=== PATIENT | female | born 1930 | race Native Hawaiian/Other Pacific Islander ===

== ENCOUNTER 2018-01-17 20:43 | Inpatient (IN) | payer MEDICARE, MEDICAID ==
[~2018-01-17] VITALS: Ht 157.5 cm; Wt 54.0 kg
--- NOTE | 2018-01-17 21:49 | NUR ---
Pt ambulated to with two person assist. Pt resting in position of comfort for self with eyes closed, resp even and unlabored. No obvious signs of distress. Pt transfered here from [facility] for medical clearance prior to admission to [facility]HU. Pt arrived on a 5150 for danger to self. Per EMS report pt sts she wants to because she feels too much. Pt denies HI.
[2018-01-17] MEDS ORDERED: SUCR1TAB PO (22:22)
[2018-01-17] MEDS ORDERED: CELEBREX (22:22)
[2018-01-17] MEDS ORDERED: FAMO20TA8 PO (22:22)
[2018-01-17] MEDS ORDERED: DORZ10DR10 EACHEYE (22:22)
[2018-01-17] MEDS ORDERED: SERT50TA12 PO (22:22)
[2018-01-17] MEDS ORDERED: RISE35TA PO (22:22)
[2018-01-17] MEDS ORDERED: MIRA50TA PO (22:22)
[2018-01-17] MEDS ORDERED: ATOR10TA PO (22:22)
[2018-01-17] MEDS ORDERED: ASPIRIN EC (22:22)
[2018-01-17] MEDS ORDERED: AMYL1CAP58 PO (22:22)
--- NOTE | 2018-01-17 23:10 | NUR ---
Nicki aquino in [facility] - 01/17/18 at 2355 by [id number] PATIENT MEDICAL CLEARED BY DR FOURNIER
--- NOTE | 2018-01-17 23:10 | NUR ---
PATIENT MEDICALLY CLEARED BY DR FOURNIER.
--- NOTE | 2018-01-17 23:14 | NUR ---
Pt. admitted to MHU, under care of Dr. SALAZAR/KIET Belongs List completed.
[2018-01-17] MEDS ORDERED: CLONAZEPAM 0.5 MG TABLET PO SCH (23:30)
[2018-01-17] MEDS ORDERED: TEMAZEPAM 7.5 MG CAPSULE PO PRN (23:30)
[2018-01-17] MEDS ORDERED: MAGNESIUM HYDROXIDE 30 ML LIQUID UDC PO PRN (23:30)
[2018-01-17] MEDS ORDERED: MAG HYDROX/AL HYDROX/SIMETH 30 ML LIQUID UDC PO PRN (23:30)
[2018-01-18] VITALS: BP 158/70
[2018-01-18] MEDS ORDERED: ACETAMINOPHEN 325 MG TABLET ONE (01:29)
[2018-01-18] MEDS ORDERED: CLONAZEPAM 0.5 MG TABLET ONE (01:29)
[2018-01-18] MEDS: ACETAMINOPHEN 325 MG TABLET PO PRN ×2 (01:33→15:34)
[2018-01-18] MEDS ORDERED: CLONAZEPAM 0.5 MG TABLET PO PRN (07:06)
[2018-01-18 07:30] VITALS: BP 134/67
--- NOTE | 2018-01-18 07:31 | NUR ---
Admitting note Patient is am 87 yr old Nepali female admitted on a 5150 for DTS. Patient presented to [facility] complaining of general weakness. Upon further assessment patient according to the hold and medical record verbalized feeling of wanting to because she was in too much pain. Attempts made to communicate with patient using [employer] translation services, according to autism teacher patient is confused and is able to state her name only minimal information obtained through medical records. Notified patient's daughter in law sister. Patient admitted under the care of Dr. Hernandez and Dr. Turcios both aware of admission, follow up with reconciliation endorsed to a.m. shift. Continue to monitor for safety.
[2018-01-18] MEDS: SERTRALINE HCL 50 MG TABLET PO SCH (14:01)
[2018-01-18 15:46] VITALS: BP 156/73
[2018-01-18] MEDS: BLOOD SUGAR DIAGNOSTIC 1 EACH STRIP VI SCH ×2 (16:38→16:49)
[2018-01-18] MEDS: SUCRALFATE 1 G TABLET PO SCH (16:44)
[2018-01-18] MEDS: LIPASE/PROTEASE/AMYLASE 4200 UNITS CAPSULE.DR PO SCH (17:23)
[2018-01-18 20:00] VITALS: BP 142/70
[2018-01-18] MEDS: TRAZODONE 50 MG TABLET PO SCH (21:02)
[2018-01-18] MEDS: ATORVASTATIN 10 MG TABLET PO SCH (21:02)
[2018-01-18] MEDS: DORZOLAMIDE 2% OPHT DROP 10 ML BOTTLE EACHEYE SCH (21:08)
[2018-01-19] MEDS: SUCRALFATE 1 G TABLET PO SCH ×2 (06:05→18:09)
[2018-01-19] MEDS: BLOOD SUGAR DIAGNOSTIC 1 EACH STRIP VI SCH ×2 (06:07→18:09)
[2018-01-19] MEDS ORDERED: RISEDRONATE 35 MG PO SCH (06:30)
[2018-01-19] MEDS ORDERED: RISEDRONATE SODIUM 35 MG TABLET PO SCH (06:30)
[2018-01-19 07:30] VITALS: BP 162/82
--- NOTE | 2018-01-19 07:30 | NUR ---
Sleeping, comfortable, not in distress
[2018-01-19 08:03] LABS: BASOPHILS # (AUTO) 0.1 K/uL (0.0-8.0); BASOPHILS % (AUTO) 0.6 % (0.0-2.0); EOSINOPHILS # (AUTO) 0.1 K/uL (0.0-0.7); EOSINOPHILS % (AUTO) 1.1 % (0.0-7.0); HEMATOCRIT 27.7 % (31.2-41.9); HEMOGLOBIN 9.3 g/dL (10.9-14.3); LYMPHOCYTES # (AUTO) 1.5 K/uL (20.0-40.0); LYMPHOCYTES % (AUTO) 10.9 % (20.5-51.5); MEAN CORPUSCULAR HEMOGLOBIN 28.9 uug (24.7-32.8); MEAN CORPUSCULAR HGB CONC 34 g/dL (32.3-35.6); MEAN CORPUSCULAR VOLUME 86.3 fL (75.5-95.3); MONOCYTES # (AUTO) 0.7 K/uL (2.0-10.0); MONOCYTES % (AUTO) 5.3 % (0.0-11.0); NEUTROPHILS # (AUTO) 11.2 K/uL (1.8-8.9); NEUTROPHILS % (AUTO) 82.1 % (38.5-71.5); PLATELET COUNT (AUTO) 525 K/uL (179-408); RED BLOOD CELL COUNT(AUTO) 3.21 MIL/uL (3.63-4.92); WHITE BLOOD COUNT (AUTO) 13.6 K/uL (3.8-11.8)
[2018-01-19 08:10] LABS: ALANINE AMINOTRANSFERASE 43 U/L (14-59); ALKALINE PHOSPHATASE 86 U/L (50-136); ASPARTATE AMINOTRANSFERASE 43 U/L (15-37); BILIRUBIN,TOTAL 0.4 mg/dL (0.2-1.0); CARBON DIOXIDE 28 mmol/L (21-32); CHLORIDE 98 mmol/L (98-107); GLUCOSE 121 mg/dL (74-106); MAGNESIUM 1.9 mg/dL (1.8-2.4); PHOSPHOROUS 2.7 mg/dL (2.5-4.9); POTASSIUM 3.7 mmol/L (3.5-5.1); TOTAL PROTEIN, SERUM 6.1 g/dL (6.4-8.2); UREA NITROGEN, BLOOD 23 mg/dL (7-18)
[2018-01-19 08:40] LABS: THYROID STIMULATING HORMONE 2.688 mIU/mL (0.358-3.740)
[2018-01-19] MEDS: FAMOTIDINE 20 MG TABLET PO SCH (08:57)
[2018-01-19] MEDS: SERTRALINE HCL 50 MG TABLET PO SCH (08:57)
[2018-01-19] MEDS: ASPIRIN EC 81 MG TABLET.DR PO SCH (08:57)
[2018-01-19] MEDS: LIPASE/PROTEASE/AMYLASE 4200 UNITS CAPSULE.DR PO SCH ×3 (08:59→18:09)
[2018-01-19] MEDS: MYRBETRIQ 50 MG PO SCH (09:00)
[2018-01-19] MEDS ORDERED: Medication Not On Formulary EA (Amylase/Lipase/Protease (Creon Dr 24,000 Units Capsule) PO SCH (09:00)
[2018-01-19] MEDS: DORZOLAMIDE 2% OPHT DROP 10 ML BOTTLE EACHEYE SCH ×2 (09:00→20:25)
--- NOTE | 2018-01-19 09:00 | NUR ---
Awake, compliant wit taking of medications. Anxious to get out of bed, placed on nam chair
[2018-01-19 09:57] LABS: *BILIRUBIN,URIN NEGATIVE (NEGATIVE); *BLOOD, URINE 3+ (NEGATIVE); *CLARITY,URINE SLIGHTLY CLOUDY (CLEAR); *COLOR,URINE YELLOW (YELLOW); *KETONES,URINE TRACE (NEGATIVE); *PROTEIN,URINE 2+ (NEGATIVE); *UROBILINOGEN,URINE 0.2 E.U./dl (NORMAL); LEUKOCYTE ESTERASE ,URINE NEGATIVE (NEGATIVE); NITRITE, URINE NEGATIVE (NEGATIVE); UGLUCOSE NEGATIVE (NEGATIVE)
[2018-01-19 10:10] LABS: BACTERIA,URINE MODERATE /HPF (NONE SEEN); RBC,URINE 20-50 /HPF (0-3); SQUAMOUS EPITHELIAL CELL,UR MODERATE /HPF (NONE SEEN)
[2018-01-19] MEDS ORDERED: DEXTROSE 50% 50 ML DISP.SYRIN IV PRN (11:30)
[2018-01-19] MEDS ORDERED: INSULIN REGULAR, HUMAN 300 UNIT/3 ML VIAL SQ PRN (11:30)
[2018-01-19] MEDS: SULFAMETH/TRIMETH 800/160 MG TABLET PO SCH ×2 (12:05→20:26)
[2018-01-19] MEDS: METOPROLOL TARTRATE 25 MG TABLET PO SCH ×2 (12:06→20:27)
--- NOTE | 2018-01-19 12:19 | NUR ---
Firearms Report: [employer] completed and submitted [employer] Report on 01/19/18.
[2018-01-19 15:14] VITALS: BP 132/77
[2018-01-19] MEDS ORDERED: BLOOD SUGAR DIAGNOSTIC 1 EACH STRIP VI SCH (17:00)
--- NOTE | 2018-01-19 17:25 | NUR ---
KUB done at bedside. Cooperative with care
[2018-01-19] MEDS: ATORVASTATIN 10 MG TABLET PO SCH (20:25)
[2018-01-19] MEDS: TRAZODONE 50 MG TABLET PO SCH (20:26)
[2018-01-19 20:38] VITALS: BP 136/76
[2018-01-20] MEDS: BLOOD SUGAR DIAGNOSTIC 1 EACH STRIP VI SCH ×2 (06:30→17:04)
[2018-01-20] MEDS: SUCRALFATE 1 G TABLET PO SCH ×2 (06:31→16:58)
--- NOTE | 2018-01-20 06:43 | NUR ---
Slept 7.0 hrs last night. No signs of agitation. BS checked 113. Pt was given shower.
[2018-01-20 07:30] VITALS: BP 138/67
[2018-01-20] MEDS: FAMOTIDINE 20 MG TABLET PO SCH (08:20)
[2018-01-20] MEDS: SULFAMETH/TRIMETH 800/160 MG TABLET PO SCH ×2 (08:20→20:17)
[2018-01-20] MEDS: METOPROLOL TARTRATE 25 MG TABLET PO SCH ×2 (08:22→20:22)
[2018-01-20] MEDS: SERTRALINE HCL 50 MG TABLET PO SCH (08:22)
[2018-01-20] MEDS: ASPIRIN EC 81 MG TABLET.DR PO SCH (08:22)
[2018-01-20] MEDS: LIPASE/PROTEASE/AMYLASE 4200 UNITS CAPSULE.DR PO SCH ×3 (08:24→18:43)
[2018-01-20] MEDS: MYRBETRIQ 50 MG PO SCH (08:24)
[2018-01-20] MEDS: DORZOLAMIDE 2% OPHT DROP 10 ML BOTTLE EACHEYE SCH ×2 (08:24→20:16)
[2018-01-20 09:43] LABS: BASOPHILS # (AUTO) 0.1 K/uL (0.0-8.0); BASOPHILS % (AUTO) 0.5 % (0.0-2.0); EOSINOPHILS # (AUTO) 0.1 K/uL (0.0-0.7); EOSINOPHILS % (AUTO) 0.4 % (0.0-7.0); HEMATOCRIT 28.9 % (31.2-41.9); HEMOGLOBIN 9.6 g/dL (10.9-14.3); LYMPHOCYTES # (AUTO) 1.3 K/uL (20.0-40.0); LYMPHOCYTES % (AUTO) 8.2 % (20.5-51.5); MEAN CORPUSCULAR HEMOGLOBIN 28.7 uug (24.7-32.8); MEAN CORPUSCULAR HGB CONC 33 g/dL (32.3-35.6); MEAN CORPUSCULAR VOLUME 86.7 fL (75.5-95.3); MONOCYTES # (AUTO) 0.5 K/uL (2.0-10.0); MONOCYTES % (AUTO) 3.3 % (0.0-11.0); NEUTROPHILS # (AUTO) 14.4 K/uL (1.8-8.9); NEUTROPHILS % (AUTO) 87.6 % (38.5-71.5); PLATELET COUNT (AUTO) 535 K/uL (179-408); RED BLOOD CELL COUNT(AUTO) 3.33 MIL/uL (3.63-4.92); WHITE BLOOD COUNT (AUTO) 16.4 K/uL (3.8-11.8)
[2018-01-20 09:44] LABS: ALANINE AMINOTRANSFERASE 50 U/L (14-59); ALKALINE PHOSPHATASE 106 U/L (50-136); ASPARTATE AMINOTRANSFERASE 69 U/L (15-37); BILIRUBIN,TOTAL 0.5 mg/dL (0.2-1.0); CARBON DIOXIDE 23 mmol/L (21-32); CHLORIDE 98 mmol/L (98-107); CREATININE 1.1 mg/dL (0.6-1.3); GLUCOSE 111 mg/dL (74-106); MAGNESIUM 1.9 mg/dL (1.8-2.4); PHOSPHOROUS 3.4 mg/dL (2.5-4.9); POTASSIUM 3.9 mmol/L (3.5-5.1); TOTAL PROTEIN, SERUM 6.6 g/dL (6.4-8.2); UREA NITROGEN, BLOOD 21 mg/dL (7-18)
--- NOTE | 2018-01-20 10:12 | NUR ---
Initial Discharge Instructions: Pt currently lives at home with her son and dtr-in-law [[address] [place] [address]; [phone]]. Spoke with pt's dtr-in-law, Ree ([phone]) who states that the pt will be able to return home with her son when ready for discharge. SW will speak with pt, family, and MD regarding appropriate discharge plan for the pt. SW will form a safe and proper discharge plan.
[2018-01-20 16:45] VITALS: BP 135/61
[2018-01-20] MEDS: ATORVASTATIN 10 MG TABLET PO SCH (20:18)
[2018-01-20] MEDS: TRAZODONE 50 MG TABLET PO SCH (20:18)
[2018-01-20] MEDS: ACETAMINOPHEN 325 MG TABLET PO PRN (20:20)
[2018-01-20 20:27] VITALS: BP 114/59
--- NOTE | 2018-01-20 21:00 | NUR ---
RECEIVED PATIENT SITTING IN A NENA CHAIR IN THE HALLWAY NEAR THE NURSING STATION. SHE WAS NOTED A/O X 1. CALM AND COOPERATIVE. NO BX PROBLEMS NOTED AT THIS TIME. BLUNTED AFFECT, DEPRESSED MOOD NOTED. PT COMPLIANT WITH MEDICATION REGIMENT, DIET AND PLAN OF CARE AT THIS TIME.
[2018-01-21] MEDS: SUCRALFATE 1 G TABLET PO SCH ×2 (06:42→16:30)
[2018-01-21] MEDS: BLOOD SUGAR DIAGNOSTIC 1 EACH STRIP VI SCH ×2 (06:47→16:30)
[2018-01-21 07:30] VITALS: BP 128/57
[2018-01-21] MEDS: DORZOLAMIDE 2% OPHT DROP 10 ML BOTTLE EACHEYE SCH ×2 (09:32→20:24)
[2018-01-21] MEDS: LIPASE/PROTEASE/AMYLASE 4200 UNITS CAPSULE.DR PO SCH ×3 (09:33→17:52)
[2018-01-21] MEDS: FAMOTIDINE 20 MG TABLET PO SCH (09:33)
[2018-01-21] MEDS: SERTRALINE HCL 50 MG TABLET PO SCH (09:34)
[2018-01-21] MEDS: METOPROLOL TARTRATE 25 MG TABLET PO SCH ×2 (09:34→20:27)
[2018-01-21] MEDS: SULFAMETH/TRIMETH 800/160 MG TABLET PO SCH (09:35)
[2018-01-21] MEDS: MYRBETRIQ 50 MG PO SCH (09:36)
[2018-01-21] MEDS: ASPIRIN EC 81 MG TABLET.DR PO SCH (09:36)
[2018-01-21 16:20] VITALS: BP 128/58
[2018-01-21 20:00] VITALS: BP 124/56
[2018-01-21] MEDS: ATORVASTATIN 10 MG TABLET PO SCH (20:25)
[2018-01-21] MEDS: TRAZODONE 50 MG TABLET PO SCH (20:25)
[2018-01-21] MEDS: NITROFURANTOIN/NITROFURAN MAC 100 MG CAPSULE PO SCH (20:26)
[2018-01-22] MEDS: BLOOD SUGAR DIAGNOSTIC 1 EACH STRIP VI SCH ×2 (06:39→17:46)
[2018-01-22 07:30] VITALS: BP 120/52
[2018-01-22 08:02] LABS: ALANINE AMINOTRANSFERASE 123 U/L (14-59); ALKALINE PHOSPHATASE 162 U/L (50-136); ASPARTATE AMINOTRANSFERASE 159 U/L (15-37); BILIRUBIN,TOTAL 0.5 mg/dL (0.2-1.0); CARBON DIOXIDE 25 mmol/L (21-32); CHLORIDE 97 mmol/L (98-107); CREATININE 1.3 mg/dL (0.6-1.3); GLUCOSE 119 mg/dL (74-106); MAGNESIUM 1.9 mg/dL (1.8-2.4); PHOSPHOROUS 3.4 mg/dL (2.5-4.9); POTASSIUM 3.9 mmol/L (3.5-5.1); TOTAL PROTEIN, SERUM 6.4 g/dL (6.4-8.2); UREA NITROGEN, BLOOD 24 mg/dL (7-18)
[2018-01-22 08:18] LABS: BASOPHILS # (AUTO) 0.1 K/uL (0.0-8.0); BASOPHILS % (AUTO) 0.6 % (0.0-2.0); EOSINOPHILS # (AUTO) 0.2 K/uL (0.0-0.7); EOSINOPHILS % (AUTO) 1.8 % (0.0-7.0); HEMATOCRIT 27.2 % (31.2-41.9); HEMOGLOBIN 8.9 g/dL (10.9-14.3); LYMPHOCYTES # (AUTO) 0.9 K/uL (20.0-40.0); LYMPHOCYTES % (AUTO) 6.9 % (20.5-51.5); MEAN CORPUSCULAR HEMOGLOBIN 28.5 uug (24.7-32.8); MEAN CORPUSCULAR HGB CONC 33 g/dL (32.3-35.6); MEAN CORPUSCULAR VOLUME 86.9 fL (75.5-95.3); MONOCYTES # (AUTO) 0.6 K/uL (2.0-10.0); MONOCYTES % (AUTO) 4.6 % (0.0-11.0); NEUTROPHILS # (AUTO) 11.3 K/uL (1.8-8.9); NEUTROPHILS % (AUTO) 86.1 % (38.5-71.5); PLATELET COUNT (AUTO) 529 K/uL (179-408); RED BLOOD CELL COUNT(AUTO) 3.13 MIL/uL (3.63-4.92); WHITE BLOOD COUNT (AUTO) 13.2 K/uL (3.8-11.8)
[2018-01-22 09:12] VITALS: BP 120/52
[2018-01-22] MEDS: DORZOLAMIDE 2% OPHT DROP 10 ML BOTTLE EACHEYE SCH (09:12)
[2018-01-22] MEDS: METOPROLOL TARTRATE 25 MG TABLET PO SCH (09:12)
[2018-01-22] MEDS: ASPIRIN EC 81 MG TABLET.DR PO SCH (09:12)
[2018-01-22] MEDS: NITROFURANTOIN/NITROFURAN MAC 100 MG CAPSULE PO SCH (09:13)
[2018-01-22] MEDS: LIPASE/PROTEASE/AMYLASE 4200 UNITS CAPSULE.DR PO SCH ×3 (09:13→18:08)
[2018-01-22] MEDS: SERTRALINE HCL 50 MG TABLET PO SCH (09:13)
[2018-01-22] MEDS: SUCRALFATE 1 G TABLET PO SCH ×2 (09:13→17:46)
[2018-01-22] MEDS: FAMOTIDINE 20 MG TABLET PO SCH (09:13)
[2018-01-22] MEDS: MYRBETRIQ 50 MG PO SCH (09:14)
--- NOTE | 2018-01-22 12:17 | NUR ---
Gps/Custodial Operations Manager- Patient will be discharge to Medical floor for higher level of care. Remains on contact precautions , observed.Complaince noted with her routine medications. Ambulated to the bathroom with front wheel walker cga. needed verbal cueing in sequencing her tasks. Denie any discomfort, pleasant cooperative,redirectable.
--- NOTE | 2018-01-22 12:50 | NUR ---
Discharge Note: Patient will be discharged to the medical floor for a higher level of care under Dr. Guillen. Patient will continue to follow-up with her outpatient Primary Care Physician, Dr. Joshua Eldridge [[address], [place] [address]; ] upon discharge from the medical floor. Patient was also given referrals for outpatient Psychiatrists, as well as referrals to [facility] [[address] [place] [address]; [phone]], [facility] [[address] [place] [address]; [phone]], and [facility] [[address], [address] [place] [address]; [phone]]. Patient was provided outpatient mental health resources including, [facility] Crisis Line , Gladys Bhagat , and the National Suicide Prevention Lifeline .
--- NOTE | 2018-01-22 19:02 | NUR ---
Gps/Maninder Pineda payment collector fron Medical floor called, patient assined to room # 207, will call and notify when room cleaned.
--- NOTE | 2018-01-22 19:25 | NUR ---
Gps/Basket Weaver- report given to Fredis Hebert.
--- NOTE | 2018-01-22 20:00 | NUR ---
pt discharged to med surg. pt was transferred in stable condition, via wheel chair, in no acute distress.
[2018-01-22] MEDS ORDERED: ATOR10TA PO ×2 (21:24→23:42)
[2018-01-22] MEDS ORDERED: ACET-2154 PO ×2 (21:24→23:42)
[2018-01-22] MEDS ORDERED: FAMO-132 PO ×2 (21:24→23:42)
[2018-01-22] MEDS ORDERED: ASPI81TA31 PO ×2 (21:24→23:42)
[2018-01-22] MEDS ORDERED: DORZ10DR10 OP (21:24)
[2018-01-22] MEDS ORDERED: CLON0.5T PO ×2 (21:24→23:42)
[2018-01-22] MEDS ORDERED: LIPA1CAP27 PO ×2 (21:24→23:42)
[2018-01-22] MEDS ORDERED: INSU100V28 (21:24)
[2018-01-22] MEDS ORDERED: SUCR1TAB31 PO ×2 (21:41→23:42)
[2018-01-22] MEDS ORDERED: MAGN400O6 PO ×2 (21:41→23:42)
[2018-01-22] MEDS ORDERED: NITR100C11 PO ×2 (21:41→23:42)
[2018-01-22] MEDS ORDERED: BLOO-668 IN (21:41)
[2018-01-22] MEDS ORDERED: SERT50TA PO ×2 (21:41→23:42)
[2018-01-22] MEDS ORDERED: TRAZ-144 PO ×2 (21:41→23:42)
[2018-01-22] MEDS ORDERED: MAGN30OR PO (21:41)
[2018-01-22] MEDS ORDERED: METO25TA6 PO ×2 (21:41→23:42)
[2018-01-22] MEDS ORDERED: TEMA7.5C PO ×2 (21:41→23:42)
[2018-01-22] MEDS ORDERED: RISEDRONATE PO ×2 (21:45→23:42)
[2018-01-22] MEDS ORDERED: MIRA50TA PO ×2 (21:45→23:42)
[2018-01-22] MEDS ORDERED: DORZ10DR11 EACHEYE (23:42)
[2018-01-22] MEDS ORDERED: MAG-55 PO (23:42)
== END 2018-01-22 20:00 | disposition short-term general hospital (02) | DRG 885 ==
LOC: ER 20:47 → GPS 23:22
PROVIDERS: ADMIT Psychiatry & Neurology Psychiatry; ATTEND Internal Medicine
DX: F33.2 Major depressive disorder, recurrent severe without psychotic features (principal); F02.80 Dementia in other diseases classified elsewhere, unspecified severity, without behavioral disturbance, psychotic disturbance, mood disturbance, and anxiety; E43 Unspecified severe protein-calorie malnutrition; N17.0 Acute kidney failure with tubular necrosis; A41.9 Sepsis, unspecified organism; E11.65 Type 2 diabetes mellitus with hyperglycemia; J90 Pleural effusion, not elsewhere classified; G93.40 Encephalopathy, unspecified; E87.1 Hypo-osmolality and hyponatremia; D68.59 Other primary thrombophilia; N39.0 Urinary tract infection, site not specified; G30.9 Alzheimer's disease, unspecified; Z79.899 Other long term (current) drug therapy; R62.7 Adult failure to thrive; F41.9 Anxiety disorder, unspecified; Z74.09 Other reduced mobility; B95.2 Enterococcus as the cause of diseases classified elsewhere; B96.89 Other specified bacterial agents as the cause of diseases classified elsewhere; Z16.12 Extended spectrum beta lactamase (ESBL) resistance; Z68.21 Body mass index [BMI] 21.0-21.9, adult; M19.90 Unspecified osteoarthritis, unspecified site; R74.0 Nonspecific elevation of levels of transaminase and lactic acid dehydrogenase [LDH]; K21.9 Gastro-esophageal reflux disease without esophagitis; I11.9 Hypertensive heart disease without heart failure; E11.649 Type 2 diabetes mellitus with hypoglycemia without coma
CPT/HCPCS: 36415; 71045; 74018; 83735; 84100; 84443; 85025; 87077; 87086; 93005; 97116; 97530; A4663; J1815; J8499

== ENCOUNTER 2018-01-22 20:37 | Inpatient (IN) | payer MEDICARE, MEDICAID ==
[~2018-01-22] VITALS: Ht 149.9 cm; Wt 41.3 kg
[~2018-01-22 20:37] MED LIST: AMYL1CAP58 PO; ASPIRIN EC; ATOR10TA PO; CELEBREX; DORZ10DR10 EACHEYE; FAMO20TA8 PO; MIRA50TA PO; RISE35TA PO; SUCR1TAB PO
[2018-01-22] MEDS ORDERED: ATOR10TA PO ×2 (21:24→23:42)
[2018-01-22] MEDS ORDERED: DORZ10DR10 OP (21:24)
[2018-01-22] MEDS ORDERED: INSU100V28 (21:24)
[2018-01-22] MEDS ORDERED: CLON0.5T PO ×2 (21:24→23:42)
[2018-01-22] MEDS ORDERED: ASPI81TA31 PO ×2 (21:24→23:42)
[2018-01-22] MEDS ORDERED: LIPA1CAP27 PO ×2 (21:24→23:42)
[2018-01-22] MEDS ORDERED: ACET-2154 PO ×2 (21:24→23:42)
[2018-01-22] MEDS ORDERED: FAMO-132 PO ×2 (21:24→23:42)
[2018-01-22] MEDS ORDERED: TRAZ-144 PO ×2 (21:41→23:42)
[2018-01-22] MEDS ORDERED: SERT50TA PO ×2 (21:41→23:42)
[2018-01-22] MEDS ORDERED: MAGN400O6 PO ×2 (21:41→23:42)
[2018-01-22] MEDS ORDERED: TEMA7.5C PO ×2 (21:41→23:42)
[2018-01-22] MEDS ORDERED: METO25TA6 PO ×2 (21:41→23:42)
[2018-01-22] MEDS ORDERED: MAGN30OR PO (21:41)
[2018-01-22] MEDS ORDERED: SUCR1TAB31 PO ×2 (21:41→23:42)
[2018-01-22] MEDS ORDERED: NITR100C11 PO ×2 (21:41→23:42)
[2018-01-22] MEDS ORDERED: BLOO-668 IN (21:41)
[2018-01-22 21:43] VITALS: BP 133/62
[2018-01-22] MEDS ORDERED: RISEDRONATE PO ×2 (21:45→23:42)
[2018-01-22] MEDS ORDERED: MIRA50TA PO ×2 (21:45→23:42)
[2018-01-22] MEDS ORDERED: INSULIN REGULAR, HUMAN 300 UNIT/3 ML VIAL SQ PRN (22:45)
[2018-01-22] MEDS ORDERED: DEXTROSE 50% 50 ML DISP.SYRIN IV PRN (22:45)
[2018-01-22] MEDS ORDERED: MAG-55 PO (23:42)
[2018-01-22] MEDS ORDERED: DORZ10DR11 EACHEYE (23:42)
[2018-01-22] MEDS ORDERED: TEMAZEPAM 7.5 MG CAPSULE PO PRN (23:45)
[2018-01-22] MEDS ORDERED: ACETAMINOPHEN 325 MG TABLET PO PRN (23:45)
[2018-01-22] MEDS ORDERED: CLONAZEPAM 0.5 MG TABLET PO PRN (23:45)
[2018-01-23 00:34] VITALS: BP 139/73
[2018-01-23] MEDS ORDERED: MEROPENEM 500 MG VIAL IV ONE (02:20)
[2018-01-23 04:27] VITALS: BP 144/65
[2018-01-23] MEDS ORDERED: MEROPENEM 500 MG in IV NORMAL SALINE 50 ML IV SCH (06:00)
[2018-01-23] MEDS: BLOOD SUGAR DIAGNOSTIC 1 EACH STRIP VI SCH ×4 (06:30→20:39)
[2018-01-23 06:42] LABS: BASOPHILS # (AUTO) 0.1 K/uL (0.0-8.0); BASOPHILS % (AUTO) 0.4 % (0.0-2.0); EOSINOPHILS # (AUTO) 0.1 K/uL (0.0-0.7); EOSINOPHILS % (AUTO) 1.1 % (0.0-7.0); HEMATOCRIT 28.6 % (31.2-41.9); HEMOGLOBIN 9.5 g/dL (10.9-14.3); LYMPHOCYTES # (AUTO) 0.9 K/uL (20.0-40.0); LYMPHOCYTES % (AUTO) 6.8 % (20.5-51.5); MEAN CORPUSCULAR HEMOGLOBIN 28.7 uug (24.7-32.8); MEAN CORPUSCULAR HGB CONC 33 g/dL (32.3-35.6); MEAN CORPUSCULAR VOLUME 86.4 fL (75.5-95.3); MONOCYTES # (AUTO) 0.5 K/uL (2.0-10.0); MONOCYTES % (AUTO) 4.4 % (0.0-11.0); NEUTROPHILS % (AUTO) 87.3 % (38.5-71.5); PLATELET COUNT (AUTO) 562 K/uL (179-408); RED BLOOD CELL COUNT(AUTO) 3.31 MIL/uL (3.63-4.92); WHITE BLOOD COUNT (AUTO) 12.6 K/uL (3.8-11.8)
[2018-01-23 07:10] LABS: ALANINE AMINOTRANSFERASE 123 U/L (14-59); ALKALINE PHOSPHATASE 154 U/L (50-136); ASPARTATE AMINOTRANSFERASE 131 U/L (15-37); BILIRUBIN,TOTAL 0.6 mg/dL (0.2-1.0); CARBON DIOXIDE 26 mmol/L (21-32); CHLORIDE 98 mmol/L (98-107); CREATININE 1.3 mg/dL (0.6-1.3); GLUCOSE 115 mg/dL (74-106); MAGNESIUM 1.9 mg/dL (1.8-2.4); PHOSPHOROUS 3.9 mg/dL (2.5-4.9); POTASSIUM 4.5 mmol/L (3.5-5.1); TOTAL PROTEIN, SERUM 6.7 g/dL (6.4-8.2); UREA NITROGEN, BLOOD 24 mg/dL (7-18)
[2018-01-23] MEDS: FAMOTIDINE 20 MG TABLET PO SCH (08:24)
[2018-01-23] MEDS: ASPIRIN 81 MG TAB.CHEW PO SCH (08:24)
[2018-01-23] MEDS: SERTRALINE HCL 50 MG TABLET PO SCH (08:24)
[2018-01-23] MEDS: SUCRALFATE 1 G TABLET PO SCH ×2 (08:24→16:30)
[2018-01-23] MEDS: LIPASE/PROTEASE/AMYLASE 4200 UNITS CAPSULE.DR PO SCH ×3 (08:24→17:02)
[2018-01-23] MEDS: METOPROLOL TARTRATE 25 MG TABLET PO SCH ×2 (08:37→20:41)
[2018-01-23] MEDS ORDERED: DORZOLAMIDE/TIMOLOL OPHT DROP 10 ML BOTTLE EACHEYE SCH (09:00)
[2018-01-23] MEDS ORDERED: RISEDRONATE 35 MG PO SCH (09:00)
[2018-01-23] MEDS ORDERED: Medication Not On Formulary EA (Mirabegron (Myrbetriq) 50 MG) PO SCH (09:00)
[2018-01-23] MEDS: DORZOLAMIDE 2% OPHT DROP 10 ML BOTTLE EACHEYE SCH ×2 (09:31→20:42)
[2018-01-23 11:34] VITALS: BP 141/67
[2018-01-23 15:42] VITALS: BP 140/80
[2018-01-23] MEDS: MEROPENEM 500 MG in IV NORMAL SALINE 50 ML IV SCH (17:02)
[2018-01-23 20:00] VITALS: BP 143/66
[2018-01-23] MEDS: ATORVASTATIN 10 MG TABLET PO SCH (20:40)
[2018-01-23] MEDS: TRAZODONE 50 MG TABLET PO SCH (20:41)
[2018-01-24 04:00] VITALS: BP 142/72
[2018-01-24] MEDS: MEROPENEM 500 MG in IV NORMAL SALINE 50 ML IV SCH ×2 (05:24→17:11)
[2018-01-24] MEDS: SUCRALFATE 1 G TABLET PO SCH ×2 (06:27→16:46)
[2018-01-24] MEDS: BLOOD SUGAR DIAGNOSTIC 1 EACH STRIP VI SCH ×2 (06:33→11:52)
[2018-01-24] MEDS: LIPASE/PROTEASE/AMYLASE 4200 UNITS CAPSULE.DR PO SCH ×3 (08:00→16:46)
[2018-01-24 08:41] LABS: BASOPHILS # (AUTO) 0.1 K/uL (0.0-8.0); BASOPHILS % (AUTO) 0.7 % (0.0-2.0); EOSINOPHILS # (AUTO) 0.1 K/uL (0.0-0.7); EOSINOPHILS % (AUTO) 0.8 % (0.0-7.0); HEMATOCRIT 28.3 % (31.2-41.9); HEMOGLOBIN 9.4 g/dL (10.9-14.3); LYMPHOCYTES # (AUTO) 1.1 K/uL (20.0-40.0); LYMPHOCYTES % (AUTO) 7.1 % (20.5-51.5); MEAN CORPUSCULAR HEMOGLOBIN 28.6 uug (24.7-32.8); MEAN CORPUSCULAR HGB CONC 33 g/dL (32.3-35.6); MEAN CORPUSCULAR VOLUME 86.1 fL (75.5-95.3); MONOCYTES # (AUTO) 0.7 K/uL (2.0-10.0); MONOCYTES % (AUTO) 4.9 % (0.0-11.0); NEUTROPHILS # (AUTO) 12.8 K/uL (1.8-8.9); NEUTROPHILS % (AUTO) 86.5 % (38.5-71.5); PLATELET COUNT (AUTO) 571 K/uL (179-408); RED BLOOD CELL COUNT(AUTO) 3.28 MIL/uL (3.63-4.92); WHITE BLOOD COUNT (AUTO) 14.8 K/uL (3.8-11.8)
[2018-01-24 08:56] LABS: ALANINE AMINOTRANSFERASE 106 U/L (14-59); ALKALINE PHOSPHATASE 151 U/L (50-136); ASPARTATE AMINOTRANSFERASE 97 U/L (15-37); BILIRUBIN,TOTAL 0.7 mg/dL (0.2-1.0); CARBON DIOXIDE 22 mmol/L (21-32); CHLORIDE 98 mmol/L (98-107); CREATININE 1.5 mg/dL (0.6-1.3); GLUCOSE 99 mg/dL (74-106); MAGNESIUM 1.9 mg/dL (1.8-2.4); PHOSPHOROUS 4.1 mg/dL (2.5-4.9); POTASSIUM 4.1 mmol/L (3.5-5.1); TOTAL PROTEIN, SERUM 6.7 g/dL (6.4-8.2); UREA NITROGEN, BLOOD 28 mg/dL (7-18)
[2018-01-24] MEDS: METOPROLOL TARTRATE 25 MG TABLET PO SCH ×2 (09:00→21:05)
[2018-01-24] MEDS: ASPIRIN 81 MG TAB.CHEW PO SCH (09:00)
[2018-01-24] MEDS: SERTRALINE HCL 50 MG TABLET PO SCH (09:00)
[2018-01-24] MEDS: FAMOTIDINE 20 MG TABLET PO SCH (09:00)
[2018-01-24] MEDS: DORZOLAMIDE 2% OPHT DROP 10 ML BOTTLE EACHEYE SCH ×2 (09:48→21:04)
[2018-01-24] MEDS: IV NS 1000 ML 1,000 ML IV PRN (11:35)
[2018-01-24 11:52] VITALS: BP 139/60
[2018-01-24 15:59] VITALS: BP 144/70
[2018-01-24 20:00] VITALS: BP 146/67
[2018-01-24] MEDS: TRAZODONE 50 MG TABLET PO SCH (21:04)
[2018-01-24] MEDS: ATORVASTATIN 10 MG TABLET PO SCH (21:04)
[2018-01-25] MEDS: IV NS 1000 ML 1,000 ML IV PRN ×2 (02:28→15:33)
[2018-01-25 04:00] VITALS: BP 156/68
[2018-01-25] MEDS: MEROPENEM 500 MG in IV NORMAL SALINE 50 ML IV SCH ×2 (05:54→17:08)
[2018-01-25 06:29] LABS: BASOPHILS # (AUTO) 0.1 K/uL (0.0-8.0); BASOPHILS % (AUTO) 0.7 % (0.0-2.0); EOSINOPHILS # (AUTO) 0.2 K/uL (0.0-0.7); EOSINOPHILS % (AUTO) 1.2 % (0.0-7.0); HEMATOCRIT 27.9 % (31.2-41.9); HEMOGLOBIN 9.1 g/dL (10.9-14.3); LYMPHOCYTES % (AUTO) 7.3 % (20.5-51.5); MEAN CORPUSCULAR HEMOGLOBIN 28.1 uug (24.7-32.8); MEAN CORPUSCULAR HGB CONC 33 g/dL (32.3-35.6); MEAN CORPUSCULAR VOLUME 86.2 fL (75.5-95.3); MONOCYTES # (AUTO) 0.8 K/uL (2.0-10.0); MONOCYTES % (AUTO) 5.5 % (0.0-11.0); NEUTROPHILS % (AUTO) 85.3 % (38.5-71.5); PLATELET COUNT (AUTO) 538 K/uL (179-408); RED BLOOD CELL COUNT(AUTO) 3.24 MIL/uL (3.63-4.92)
[2018-01-25 06:43] LABS: ALANINE AMINOTRANSFERASE 94 U/L (14-59); ALKALINE PHOSPHATASE 144 U/L (50-136); ASPARTATE AMINOTRANSFERASE 96 U/L (15-37); BILIRUBIN,TOTAL 0.6 mg/dL (0.2-1.0); CARBON DIOXIDE 21 mmol/L (21-32); CHLORIDE 102 mmol/L (98-107); CREATININE 1.7 mg/dL (0.6-1.3); GLUCOSE 112 mg/dL (74-106); MAGNESIUM 1.9 mg/dL (1.8-2.4); PHOSPHOROUS 3.9 mg/dL (2.5-4.9); TOTAL PROTEIN, SERUM 6.5 g/dL (6.4-8.2); UREA NITROGEN, BLOOD 34 mg/dL (7-18)
[2018-01-25] MEDS: SUCRALFATE 1 G TABLET PO SCH ×2 (07:03→16:58)
[2018-01-25 08:21] LABS: *OCCULT BLOOD STOOL NEGATIVE (NEGATIVE)
[2018-01-25] MEDS: FAMOTIDINE 20 MG TABLET PO SCH (08:42)
[2018-01-25] MEDS: SERTRALINE HCL 50 MG TABLET PO SCH (08:42)
[2018-01-25] MEDS: LIPASE/PROTEASE/AMYLASE 4200 UNITS CAPSULE.DR PO SCH ×3 (08:42→16:58)
[2018-01-25] MEDS: ASPIRIN 81 MG TAB.CHEW PO SCH (08:42)
[2018-01-25] MEDS: DORZOLAMIDE 2% OPHT DROP 10 ML BOTTLE EACHEYE SCH ×2 (08:43→20:44)
[2018-01-25] MEDS: METOPROLOL TARTRATE 25 MG TABLET PO SCH ×2 (08:43→20:45)
[2018-01-25 11:20] VITALS: BP 146/64
[2018-01-25 15:31] VITALS: BP 123/57
[2018-01-25 17:24] LABS: *BILIRUBIN,URIN NEGATIVE (NEGATIVE); *BLOOD, URINE 3+ (NEGATIVE); *CLARITY,URINE SLIGHTLY CLOUDY (CLEAR); *COLOR,URINE YELLOW (YELLOW); *KETONES,URINE TRACE (NEGATIVE); *PROTEIN,URINE 2+ (NEGATIVE); *UROBILINOGEN,URINE 0.2 E.U./dl (NORMAL); LEUKOCYTE ESTERASE ,URINE NEGATIVE (NEGATIVE); NITRITE, URINE NEGATIVE (NEGATIVE); UGLUCOSE NEGATIVE (NEGATIVE)
[2018-01-25 17:27] LABS: BACTERIA,URINE RARE /HPF (NONE SEEN); RBC,URINE 50-80 /HPF (0-3); SQUAMOUS EPITHELIAL CELL,UR MODERATE /HPF (NONE SEEN)
[2018-01-25 17:28] LABS: *URINE TOTAL PROTEIN RANDOM 98.2 mg/dL (<150/24HR)
[2018-01-25 20:00] VITALS: BP 146/65
[2018-01-25] MEDS: TRAZODONE 50 MG TABLET PO SCH (20:45)
[2018-01-25] MEDS: ATORVASTATIN 10 MG TABLET PO SCH (20:45)
[2018-01-26] MEDS: MEROPENEM 500 MG in IV NORMAL SALINE 50 ML IV SCH ×2 (05:19→20:01)
[2018-01-26 05:23] VITALS: BP 129/88
[2018-01-26] MEDS: IV NS 1000 ML 1,000 ML IV PRN (05:51)
[2018-01-26] MEDS: SUCRALFATE 1 G TABLET PO SCH ×2 (06:32→16:55)
[2018-01-26 07:16] LABS: ALANINE AMINOTRANSFERASE 82 U/L (14-59); ALKALINE PHOSPHATASE 131 U/L (50-136); ASPARTATE AMINOTRANSFERASE 81 U/L (15-37); BILIRUBIN,TOTAL 0.5 mg/dL (0.2-1.0); CARBON DIOXIDE 21 mmol/L (21-32); CHLORIDE 106 mmol/L (98-107); CREATINE KINASE, TOTAL 16 U/L (26-192); CREATININE 1.9 mg/dL (0.6-1.3); GLUCOSE 131 mg/dL (74-106); MAGNESIUM 1.9 mg/dL (1.8-2.4); PHOSPHOROUS 3.2 mg/dL (2.5-4.9); POTASSIUM 3.6 mmol/L (3.5-5.1); TOTAL PROTEIN, SERUM 6.1 g/dL (6.4-8.2); UREA NITROGEN, BLOOD 36 mg/dL (7-18)
[2018-01-26 07:22] LABS: BASOPHILS # (AUTO) 0.1 K/uL (0.0-8.0); BASOPHILS % (AUTO) 0.7 % (0.0-2.0); EOSINOPHILS # (AUTO) 0.1 K/uL (0.0-0.7); EOSINOPHILS % (AUTO) 1.2 % (0.0-7.0); HEMATOCRIT 27.4 % (31.2-41.9); HEMOGLOBIN 8.9 g/dL (10.9-14.3); LYMPHOCYTES # (AUTO) 0.8 K/uL (20.0-40.0); LYMPHOCYTES % (AUTO) 6.4 % (20.5-51.5); MEAN CORPUSCULAR HEMOGLOBIN 28.2 uug (24.7-32.8); MEAN CORPUSCULAR HGB CONC 32 g/dL (32.3-35.6); MEAN CORPUSCULAR VOLUME 87.1 fL (75.5-95.3); MONOCYTES # (AUTO) 0.6 K/uL (2.0-10.0); MONOCYTES % (AUTO) 4.8 % (0.0-11.0); NEUTROPHILS # (AUTO) 11.1 K/uL (1.8-8.9); NEUTROPHILS % (AUTO) 86.9 % (38.5-71.5); PLATELET COUNT (AUTO) 493 K/uL (179-408); RED BLOOD CELL COUNT(AUTO) 3.15 MIL/uL (3.63-4.92); WHITE BLOOD COUNT (AUTO) 12.7 K/uL (3.8-11.8)
[2018-01-26] MEDS: SERTRALINE HCL 50 MG TABLET PO SCH (08:05)
[2018-01-26] MEDS: ASPIRIN 81 MG TAB.CHEW PO SCH (08:05)
[2018-01-26] MEDS: FAMOTIDINE 20 MG TABLET PO SCH (08:05)
[2018-01-26] MEDS: METOPROLOL TARTRATE 25 MG TABLET PO SCH ×2 (08:06→20:17)
[2018-01-26] MEDS: LIPASE/PROTEASE/AMYLASE 4200 UNITS CAPSULE.DR PO SCH ×3 (08:07→16:56)
[2018-01-26] MEDS: DORZOLAMIDE 2% OPHT DROP 10 ML BOTTLE EACHEYE SCH ×2 (08:08→20:18)
[2018-01-26 11:37] VITALS: BP 154/67
[2018-01-26 15:15] VITALS: BP 152/47
[2018-01-26] MEDS: ATORVASTATIN 10 MG TABLET PO SCH (20:17)
[2018-01-26] MEDS: TRAZODONE 50 MG TABLET PO SCH (20:18)
[2018-01-26 20:25] VITALS: BP 159/63
[2018-01-27] MEDS: IV NS 1000 ML 1,000 ML IV PRN (04:31)
[2018-01-27] MEDS: MEROPENEM 500 MG in IV NORMAL SALINE 50 ML IV SCH ×2 (05:06→17:11)
[2018-01-27 06:18] VITALS: BP 150/68
[2018-01-27] MEDS: SUCRALFATE 1 G TABLET PO SCH ×2 (06:36→16:01)
[2018-01-27 06:56] LABS: BASOPHILS # (AUTO) 0.1 K/uL (0.0-8.0); BASOPHILS % (AUTO) 1.1 % (0.0-2.0); EOSINOPHILS # (AUTO) 0.2 K/uL (0.0-0.7); EOSINOPHILS % (AUTO) 1.7 % (0.0-7.0); HEMATOCRIT 25.2 % (31.2-41.9); HEMOGLOBIN 8.2 g/dL (10.9-14.3); LYMPHOCYTES # (AUTO) 1.2 K/uL (20.0-40.0); LYMPHOCYTES % (AUTO) 11.1 % (20.5-51.5); MEAN CORPUSCULAR HEMOGLOBIN 28.4 uug (24.7-32.8); MEAN CORPUSCULAR HGB CONC 33 g/dL (32.3-35.6); MEAN CORPUSCULAR VOLUME 87.6 fL (75.5-95.3); MONOCYTES # (AUTO) 0.5 K/uL (2.0-10.0); MONOCYTES % (AUTO) 4.5 % (0.0-11.0); NEUTROPHILS # (AUTO) 8.6 K/uL (1.8-8.9); NEUTROPHILS % (AUTO) 81.6 % (38.5-71.5); PLATELET COUNT (AUTO) 396 K/uL (179-408); RED BLOOD CELL COUNT(AUTO) 2.88 MIL/uL (3.63-4.92); WHITE BLOOD COUNT (AUTO) 10.5 K/uL (3.8-11.8)
[2018-01-27 07:00] LABS: ALANINE AMINOTRANSFERASE 70 U/L (14-59); ALKALINE PHOSPHATASE 113 U/L (50-136); ASPARTATE AMINOTRANSFERASE 62 U/L (15-37); BILIRUBIN,TOTAL 0.5 mg/dL (0.2-1.0); CARBON DIOXIDE 22 mmol/L (21-32); CHLORIDE 108 mmol/L (98-107); CREATININE 2.1 mg/dL (0.6-1.3); GLUCOSE 99 mg/dL (74-106); PHOSPHOROUS 4.4 mg/dL (2.5-4.9); POTASSIUM 3.6 mmol/L (3.5-5.1); UREA NITROGEN, BLOOD 40 mg/dL (7-18)
[2018-01-27] MEDS: FAMOTIDINE 20 MG TABLET PO SCH (08:06)
[2018-01-27] MEDS: METOPROLOL TARTRATE 25 MG TABLET PO SCH (08:06)
[2018-01-27] MEDS: SERTRALINE HCL 50 MG TABLET PO SCH (08:06)
[2018-01-27] MEDS: LIPASE/PROTEASE/AMYLASE 4200 UNITS CAPSULE.DR PO SCH ×3 (08:06→16:01)
[2018-01-27] MEDS: DORZOLAMIDE 2% OPHT DROP 10 ML BOTTLE EACHEYE SCH (08:06)
[2018-01-27] MEDS: ASPIRIN 81 MG TAB.CHEW PO SCH (08:06)
[2018-01-27 11:01] VITALS: BP 156/79
[2018-01-27 12:10] LABS: A/G RATIO 0.5 (0.7-1.7); ALBUMIN 1.8 g/dL (2.9-4.4); ALPHA-1-GLOBULIN 0.5 g/dL (0.0-0.4); ALPHA-2-GLOBULIN 0.8 g/dL (0.4-1.0); BETA GLOBULIN 1.1 g/dL (0.7-1.3); GAMMA GLOBULIN 1.2 g/dL (0.4-1.8); GLOBULIN, TOTAL 3.5 g/dL (2.2-3.9); M-SPIKE Not Observed g/dL (Not Observed)
[2018-01-27] MEDS ORDERED: IV NORMAL SALINE 500 ML BAG IV ONE (14:00)
[2018-01-27 15:05] VITALS: BP 148/74
== END 2018-01-27 18:45 | disposition home health service (06) | DRG 871 ==
LOC: MED 20:37 → TELE 01-23 00:22 → MED 01-23 17:00
PROVIDERS: ADMIT Internal Medicine; ATTEND Internal Medicine
PROC: 05H533Z Insertion of Infusion Device into Right Subclavian Vein, Percutaneous Approach (ICD-10-PCS; principal; 2018-01-26)
DX: A41.81 Sepsis due to Enterococcus (principal); G93.41 Metabolic encephalopathy; N17.0 Acute kidney failure with tubular necrosis; E43 Unspecified severe protein-calorie malnutrition; I50.33 Acute on chronic diastolic (congestive) heart failure; E11.22 Type 2 diabetes mellitus with diabetic chronic kidney disease; D68.59 Other primary thrombophilia; E11.65 Type 2 diabetes mellitus with hyperglycemia; N39.0 Urinary tract infection, site not specified; Z68.1 Body mass index [BMI] 19.9 or less, adult; I13.0 Hypertensive heart and chronic kidney disease with heart failure and stage 1 through stage 4 chronic kidney disease, or unspecified chronic kidney disease; G30.9 Alzheimer's disease, unspecified; F02.80 Dementia in other diseases classified elsewhere, unspecified severity, without behavioral disturbance, psychotic disturbance, mood disturbance, and anxiety; R65.20 Severe sepsis without septic shock; Z16.12 Extended spectrum beta lactamase (ESBL) resistance; E55.9 Vitamin D deficiency, unspecified; N18.9 Chronic kidney disease, unspecified; F41.9 Anxiety disorder, unspecified; F32.9 Major depressive disorder, single episode, unspecified; Z74.09 Other reduced mobility; E78.5 Hyperlipidemia, unspecified; D63.8 Anemia in other chronic diseases classified elsewhere; Z87.440 Personal history of urinary (tract) infections; N32.81 Overactive bladder; M19.90 Unspecified osteoarthritis, unspecified site; K21.9 Gastro-esophageal reflux disease without esophagitis; I07.1 Rheumatic tricuspid insufficiency; H40.9 Unspecified glaucoma; F06.8 Other specified mental disorders due to known physiological condition; B96.20 Unspecified Escherichia coli [E. coli] as the cause of diseases classified elsewhere
CPT/HCPCS: 36415; 36569; 70030-TC; 71045; 76705; 76770; 83690; 83735; 83970; 84100; 84155; 84156; 84165; 84300; 85025; 93307; A4663; J1815; J2185; J3490; J7030; J7040

== ENCOUNTER 2018-02-06 12:23 | Inpatient (IN) | payer MEDICARE, MEDICAID ==
[~2018-02-06] VITALS: Ht 142.2 cm; Wt 46.3 kg
[~2018-02-06 12:23] MED LIST changes: +ACET-2154 PO; -AMYL1CAP58 PO; +ASPI81TA31 PO; -ASPIRIN EC; -CELEBREX; +CLON0.5T PO; -DORZ10DR10 EACHEYE; +DORZ10DR11 EACHEYE; +FAMO-132 PO; -FAMO20TA8 PO; +LIPA1CAP27 PO; +MAG-55 PO; +MAGN400O6 PO; +METO25TA6 PO; -RISE35TA PO; +RISEDRONATE PO; +SERT50TA PO; -SUCR1TAB PO; +SUCR1TAB31 PO; +TEMA7.5C PO; +TRAZ-144 PO
[2018-02-06] MEDS ORDERED: ONDANSETRON 4 MG/2 ML VIAL IV ONE (12:45)
[2018-02-06] MEDS ORDERED: IV NORMAL SALINE 500 ML BAG IV ONE (12:45)
[2018-02-06] MEDS ORDERED: MERO500V3 IV (13:02)
[2018-02-06] MEDS ORDERED: MYRBETRIQ ER (13:02)
[2018-02-06] MEDS ORDERED: DORZ10DR10 EACHEYE (13:02)
[2018-02-06] MEDS ORDERED: OLOPATADINE (13:02)
[2018-02-06 13:03] LABS: BASOPHILS # (AUTO) 0.1 K/uL (0.0-8.0); BASOPHILS % (AUTO) 0.7 % (0.0-2.0); EOSINOPHILS % (AUTO) 0.7 % (0.0-7.0); HEMATOCRIT 25.7 % (31.2-41.9); HEMOGLOBIN 8.4 g/dL (10.9-14.3); LYMPHOCYTES # (AUTO) 1.5 K/uL (20.0-40.0); MEAN CORPUSCULAR HEMOGLOBIN 27.9 uug (24.7-32.8); MEAN CORPUSCULAR HGB CONC 33 g/dL (32.3-35.6); MEAN CORPUSCULAR VOLUME 85.6 fL (75.5-95.3); MONOCYTES # (AUTO) 0.4 K/uL (2.0-10.0); MONOCYTES % (AUTO) 6.4 % (0.0-11.0); NEUTROPHILS # (AUTO) 4.9 K/uL (1.8-8.9); NEUTROPHILS % (AUTO) 70.2 % (38.5-71.5); PLATELET COUNT (AUTO) 306 K/uL (179-408)
--- NOTE | 2018-02-06 13:04 | NUR ---
PT IS IN ROOM #1B. DR FOURNIER EVALUATED THE PT.
[2018-02-06] MEDS ORDERED: ONDANSETRON 4 MG/2 ML VIAL ONE (13:08)
[2018-02-06 13:18] LABS: ALANINE AMINOTRANSFERASE 16 U/L (14-59); ALKALINE PHOSPHATASE 80 U/L (50-136); ASPARTATE AMINOTRANSFERASE 19 U/L (15-37); BILIRUBIN,DIRECT 0.2 mg/dL (0.0-0.2); BILIRUBIN,TOTAL 0.7 mg/dL (0.2-1.0); CARBON DIOXIDE 30 mmol/L (21-32); CHLORIDE 110 mmol/L (98-107); CREATININE 1.9 mg/dL (0.6-1.3); GLUCOSE 124 mg/dL (74-106); UREA NITROGEN, BLOOD 37 mg/dL (7-18)
[2018-02-06 13:23] LABS: POTASSIUM 2.3 mmol/L (3.5-5.1)
[2018-02-06] MEDS ORDERED: POTASSIUM CHLORIDE 20 MEQ TAB.PRT.SR PO ONE (13:30)
[2018-02-06] MEDS ORDERED: POTASSIUM CHLORIDE 20 MEQ TAB.PRT.SR ONE (13:39)
[2018-02-06 13:40] LABS: LIPASE 224 U/L (73-393)
[2018-02-06 14:25] LABS: *BILIRUBIN,URIN NEGATIVE (NEGATIVE); *BLOOD, URINE 2+ (NEGATIVE); *COLOR,URINE YELLOW (YELLOW); *KETONES,URINE NEGATIVE (NEGATIVE); *UROBILINOGEN,URINE 0.2 E.U./dl (NORMAL); LEUKOCYTE ESTERASE ,URINE NEGATIVE (NEGATIVE); NITRITE, URINE NEGATIVE (NEGATIVE); PH,URINE 5.5 (5.0-8.0); UGLUCOSE NEGATIVE (NEGATIVE)
[2018-02-06 14:34] LABS: *CLARITY,URINE SLIGHTLY HAZY (CLEAR)
[2018-02-06 14:36] LABS: *PROTEIN,URINE 3+ (NEGATIVE)
[2018-02-06 14:46] LABS: BACTERIA,URINE NONE SEEN /HPF (NONE SEEN); RBC,URINE 20-50 /HPF (0-3)
[2018-02-06 14:47] LABS: SQUAMOUS EPITHELIAL CELL,UR FEW /HPF (NONE SEEN)
[2018-02-06 14:49] LABS: COARSE GRANULAR CASTS,URINE FEW /LPF
--- NOTE | 2018-02-06 15:17 | NUR ---
PT WAS TRANSFERED TO ROOM #228. REPORT WAS GIVEN TO TEST HOLE DRILLER.
--- NOTE | 2018-02-06 15:45 | NUR ---
patient arrived on med/surg unit. skin evaluated, tele monitor applied, and admission process started. patient is awake, alert, bulgarian speaking only and unable to answer questions. Patient has a right arm picc line and BP is noted to be elevated 186/82, p68. open ulcer on sacrum documented and mepilex applied. patient does not appear to be in any distress at this time. bed in low position, side rails up x2. bed alarm on.
[2018-02-06 16:00] VITALS: BP 186/82
[2018-02-06] MEDS ORDERED: Medication Not On Formulary EA (Mag Hydrox/Al Hydrox/Simeth (Maalox Advanced Max-Str Sus PO PRN (17:45)
[2018-02-06] MEDS ORDERED: TEMAZEPAM 7.5 MG CAPSULE PO PRN (17:45)
[2018-02-06] MEDS ORDERED: CLONAZEPAM 0.5 MG TABLET PO PRN (17:45)
[2018-02-06] MEDS ORDERED: ACETAMINOPHEN 325 MG TABLET PO PRN (17:45)
[2018-02-06] MEDS ORDERED: ONDANSETRON 4 MG/2 ML VIAL IV PRN (18:00)
[2018-02-06] MEDS ORDERED: MAG HYDROX/AL HYDROX/SIMETH 30 ML LIQUID UDC PO PRN (18:00)
[2018-02-06 19:08] VITALS: BP 176/71
[2018-02-06] MEDS: hydrALAZINE HCL 25 MG TABLET PO PRN (19:10)
--- NOTE | 2018-02-06 19:27 | NUR ---
RECEIVED PT LYING IN BED, ASLEEP BUT EASILY AROUSE TO VERBAL STIMULI. HEBREW SPEAKING ONLY. APPEARS COMFORTABLE AT THIS TIME. ON O2 AT 2LPM VIA NC IN PLACE. IV SITE ON RIGHT AC AND PICC LINE ON RIGHT ARM INTACT. SR ON TELE AT 4/MIN. SAFETY MEASURE INITIATED AND CALL BROWN WITHIN REACH.
[2018-02-06] MEDS: TRAZODONE 50 MG TABLET PO SCH (20:41)
[2018-02-06] MEDS: METOPROLOL TARTRATE 25 MG TABLET PO SCH (20:41)
[2018-02-06] MEDS: ATORVASTATIN 10 MG TABLET PO SCH (20:41)
[2018-02-06] MEDS ORDERED: DORZOLAMIDE/TIMOLOL OPHT DROP 10 ML BOTTLE EACHEYE SCH (21:00)
[2018-02-07] VITALS (11 sets, daily range): BP systolic 150–182; BP diastolic 55–78
[2018-02-07] MEDS: hydrALAZINE HCL 25 MG TABLET PO PRN ×3 (00:32→12:16)
--- NOTE | 2018-02-07 06:06 | NUR ---
Pt alert, English speaking only. No s/sx of pain or SOB. On O2 at 2LPM via NC. O2 sat at 99%. Not in acute distress. IV site on right ac and PICC line on right arm intact. SR on tele at 71/min. Safety measure maintained and call cai within reach.
[2018-02-07 06:22] LABS: BASOPHILS # (AUTO) 0.1 K/uL (0.0-8.0); EOSINOPHILS % (AUTO) 0.3 % (0.0-7.0); HEMATOCRIT 25.7 % (31.2-41.9); HEMOGLOBIN 8.4 g/dL (10.9-14.3); LYMPHOCYTES # (AUTO) 1.6 K/uL (20.0-40.0); LYMPHOCYTES % (AUTO) 23.8 % (20.5-51.5); MEAN CORPUSCULAR HEMOGLOBIN 28.3 uug (24.7-32.8); MEAN CORPUSCULAR HGB CONC 33 g/dL (32.3-35.6); MEAN CORPUSCULAR VOLUME 86.8 fL (75.5-95.3); MONOCYTES # (AUTO) 0.3 K/uL (2.0-10.0); MONOCYTES % (AUTO) 4.6 % (0.0-11.0); NEUTROPHILS # (AUTO) 4.7 K/uL (1.8-8.9); NEUTROPHILS % (AUTO) 70.3 % (38.5-71.5); PLATELET COUNT (AUTO) 255 K/uL (179-408); RED BLOOD CELL COUNT(AUTO) 2.96 MIL/uL (3.63-4.92); WHITE BLOOD COUNT (AUTO) 6.7 K/uL (3.8-11.8)
[2018-02-07 06:39] LABS: ALANINE AMINOTRANSFERASE 11 U/L (14-59); ALKALINE PHOSPHATASE 77 U/L (50-136); ASPARTATE AMINOTRANSFERASE 15 U/L (15-37); BILIRUBIN,TOTAL 0.6 mg/dL (0.2-1.0); CARBON DIOXIDE 31 mmol/L (21-32); CHLORIDE 114 mmol/L (98-107); CREATININE 1.9 mg/dL (0.6-1.3); GLUCOSE 127 mg/dL (74-106); MAGNESIUM 2.1 mg/dL (1.8-2.4); POTASSIUM 3.7 mmol/L (3.5-5.1); TOTAL PROTEIN, SERUM 6.5 g/dL (6.4-8.2); UREA NITROGEN, BLOOD 37 mg/dL (7-18)
--- NOTE | 2018-02-07 07:56 | NUR ---
PATIENT RESTING COMFORTABLY IN BED. UKRAINIAN SPEAKING ONLY. NO SIGNS OF DISTRESS. WILL MONITOR PATIENT'S BLOOD PRESSURE. A/OX2-3. BEDSIDE COMMODE AT BEDSIDE. BED IN LOCKED/LOW POSITION, SIDE RAILS UP X2, BED ALARM ON, CALL LIGHT WITHIN REACH.
[2018-02-07] MEDS: FAMOTIDINE 20 MG TABLET PO SCH (08:30)
[2018-02-07] MEDS: ASPIRIN 81 MG TAB.CHEW PO SCH (08:30)
[2018-02-07] MEDS: SERTRALINE HCL 50 MG TABLET PO SCH (08:30)
--- NOTE | 2018-02-07 08:30 | NUR ---
BLOOD PRESSURE ELEVATED 182/78, SCHEDULED MORNING DOSE OF METOPROLOL 12.5 MG PO ADMINISTERED, WILL RE-CHECK AND MONITOR PATIENT'S BP.
[2018-02-07] MEDS: LIPASE/PROTEASE/AMYLASE 4200 UNITS CAPSULE.DR PO SCH ×3 (08:33→17:05)
[2018-02-07] MEDS: METOPROLOL TARTRATE 25 MG TABLET PO SCH ×2 (08:36→20:21)
[2018-02-07] MEDS ORDERED: Medication Not On Formulary EA (Mirabegron (Myrbetriq) 50 MG) PO SCH (09:00)
[2018-02-07] MEDS ORDERED: DORZOLAMIDE 2% OPHT DROP 10 ML BOTTLE EACHEYE SCH (09:00)
--- NOTE | 2018-02-07 12:18 | NUR ---
BLOOD PRESSURE 170/68. APRESOLINE 25 MG PO ADMINISTERED. WILL RE-CHECK AND MONITOR BLOOD PRESSURE.
[2018-02-07] MEDS: AMLODIPINE 5 MG TABLET PO SCH ×2 (17:05→20:20)
--- NOTE | 2018-02-07 19:25 | NUR ---
RECEIVE PT LYING IN BED. AWAKE AND ALERT, JAPANESE SPEAKING ONLY. DENIES ANY PAIN OR SOB AT THIS TIME. ON O2 AT 2LPM VIA NC IN PLACE. PICC LING ON RIGHT ARM AND IV SITE ON RIGHT AC INTACT AND PATENT. SR ON TELE AT 69/MIN. SAFETY MEASURE INITIATED AND CALL BROWN WITHIN REACHED.
[2018-02-07] MEDS: ATORVASTATIN 10 MG TABLET PO SCH (20:21)
[2018-02-07] MEDS: TRAZODONE 50 MG TABLET PO SCH (20:21)
--- NOTE | 2018-02-07 21:16 | NUR ---
Recheck Pt BP and HR after routine medication Lopressor 12.5mg and Norvasc 5mg given at 2020. BP now 153/68, HR 66.
[2018-02-08] MEDS: hydrALAZINE HCL 25 MG TABLET PO PRN ×2 (00:11→11:38)
[2018-02-08 00:26] VITALS: BP 156/64
--- NOTE | 2018-02-08 01:15 | NUR ---
Recheck BP and HR an hour after giving Hydralazine 25mg, BP down to 154/54 and HR 56. Pt sleeping comfortably in bed.
--- NOTE | 2018-02-08 02:13 | NUR ---
Latest BP 138/59, HR 61. Pt sleeping comfortably in bed.
[2018-02-08 04:00] VITALS: BP 149/67
--- NOTE | 2018-02-08 06:11 | NUR ---
Pt resting comfortably in bed. No s/sx of pain or SOB. On O2 at 2LPM via NC. O2 sat at 96%. Not in acute distress. IV site on right AC and PICC line on right arm intact. SR on tele at 58/min. Safety measure maintained and call cai within reach.
[2018-02-08 06:39] LABS: BASOPHILS # (AUTO) 0.1 K/uL (0.0-8.0); EOSINOPHILS # (AUTO) 0.1 K/uL (0.0-0.7); EOSINOPHILS % (AUTO) 1.8 % (0.0-7.0); HEMATOCRIT 26.2 % (31.2-41.9); HEMOGLOBIN 8.5 g/dL (10.9-14.3); LYMPHOCYTES # (AUTO) 1.7 K/uL (20.0-40.0); LYMPHOCYTES % (AUTO) 21.3 % (20.5-51.5); MEAN CORPUSCULAR HEMOGLOBIN 27.8 uug (24.7-32.8); MEAN CORPUSCULAR HGB CONC 32 g/dL (32.3-35.6); MEAN CORPUSCULAR VOLUME 86.2 fL (75.5-95.3); MONOCYTES # (AUTO) 0.3 K/uL (2.0-10.0); NEUTROPHILS # (AUTO) 5.7 K/uL (1.8-8.9); NEUTROPHILS % (AUTO) 71.9 % (38.5-71.5); PLATELET COUNT (AUTO) 249 K/uL (179-408); RED BLOOD CELL COUNT(AUTO) 3.04 MIL/uL (3.63-4.92); WHITE BLOOD COUNT (AUTO) 7.9 K/uL (3.8-11.8)
[2018-02-08 07:16] LABS: CARBON DIOXIDE 32 mmol/L (21-32); CHLORIDE 108 mmol/L (98-107); CREATININE 1.9 mg/dL (0.6-1.3); GLUCOSE 120 mg/dL (74-106); PHOSPHOROUS 4.1 mg/dL (2.5-4.9); POTASSIUM 3.2 mmol/L (3.5-5.1); UREA NITROGEN, BLOOD 38 mg/dL (7-18)
--- NOTE | 2018-02-08 07:19 | NUR ---
PATIENT RESTING COMFORTABLY IN BED AT THIS TIME. BLOOD PRESSURE IMPROVED DURING THE NIGHT PER DRIVER'S EDUCATION INSTRUCTOR NURSE. STABLE CONDITION, NO S/S OF DISTRESS. BED ALARM ON. BEDSIDE COMMODE AT BEDSIDE. CALL LIGHT WITHIN REACH. BED IN LOCKED/LOW POSITION. WILL CONTINUE TO MONITOR THROUGHOUT SHIFT.
[2018-02-08] MEDS: AMLODIPINE 5 MG TABLET PO SCH ×2 (08:55→20:16)
[2018-02-08] MEDS: ASPIRIN 81 MG TAB.CHEW PO SCH (08:55)
[2018-02-08] MEDS: SERTRALINE HCL 50 MG TABLET PO SCH (08:55)
[2018-02-08] MEDS: FAMOTIDINE 20 MG TABLET PO SCH (08:55)
[2018-02-08] MEDS: LIPASE/PROTEASE/AMYLASE 4200 UNITS CAPSULE.DR PO SCH ×3 (08:55→18:28)
[2018-02-08] MEDS: METOPROLOL TARTRATE 25 MG TABLET PO SCH ×2 (08:56→20:16)
[2018-02-08 09:29] VITALS: BP 173/62
[2018-02-08] MEDS ORDERED: POTASSIUM CHLORIDE 10 MEQ TAB.PRT.SR PO ONE (09:30)
[2018-02-08 11:44] VITALS: BP 166/66
--- NOTE | 2018-02-08 11:45 | NUR ---
APRESOLINE 25 MG PO ADMINISTERED - BP ELEVATED AT 166/66, HEART RATE 68.
[2018-02-08] MEDS: hydrALAZINE HCL 50 MG TABLET PO SCH ×2 (14:39→22:17)
[2018-02-08 15:43] VITALS: BP 131/56
--- NOTE | 2018-02-08 20:00 | NUR ---
RECEIVED PATIENT AWAKE IN BED, SHE'S AOX2. NO S/S OF PAIN OR DISTRESS ON ASSESSMENT. VSS STABLE WITH NO FEVER, BP WNL AT 130/60. SAFETY AND COMFORT MEASURES IN PLACE. WILL CONTINUE TO MONITOR PATIENT
[2018-02-08] MEDS: ATORVASTATIN 10 MG TABLET PO SCH (20:15)
[2018-02-08] MEDS: TRAZODONE 50 MG TABLET PO SCH (20:15)
[2018-02-08 20:24] VITALS: BP 130/60
[2018-02-09 00:36] VITALS: BP 124/62
[2018-02-09 04:00] VITALS: BP_SYST 122; BP_SYST 126; BP_DIAS 54; BP_DIAS 63
--- NOTE | 2018-02-09 05:42 | NUR ---
PATIENT SLEPT MOST OF THE SHIFT, SHE'S NOTED WITH EPISODES OF CONFUSION. NO S/S OF PAIN OR ANY DISTRESS NOTED ON THIS SHIFT. BP WNL, PATIENT IN STABLE CONDITION. NO FURTHER CHANGES IN STATUS, SAFETY AND COMFORT MEASURES MAINTAINED AT ALL TIMES
[2018-02-09] MEDS: hydrALAZINE HCL 50 MG TABLET PO SCH ×2 (06:09→14:00)
[2018-02-09 06:48] LABS: ALANINE AMINOTRANSFERASE 11 U/L (14-59); ALKALINE PHOSPHATASE 81 U/L (50-136); ASPARTATE AMINOTRANSFERASE 22 U/L (15-37); BILIRUBIN,TOTAL 0.5 mg/dL (0.2-1.0); CARBON DIOXIDE 31 mmol/L (21-32); CHLORIDE 107 mmol/L (98-107); CREATININE 1.9 mg/dL (0.6-1.3); GLUCOSE 127 mg/dL (74-106); MAGNESIUM 2.1 mg/dL (1.8-2.4); PHOSPHOROUS 4.4 mg/dL (2.5-4.9); POTASSIUM 3.5 mmol/L (3.5-5.1); TOTAL PROTEIN, SERUM 6.7 g/dL (6.4-8.2); UREA NITROGEN, BLOOD 39 mg/dL (7-18)
[2018-02-09 07:33] LABS: BASOPHILS # (AUTO) 0.1 K/uL (0.0-8.0); BASOPHILS % (AUTO) 0.9 % (0.0-2.0); EOSINOPHILS # (AUTO) 0.1 K/uL (0.0-0.7); EOSINOPHILS % (AUTO) 0.6 % (0.0-7.0); LYMPHOCYTES # (AUTO) 1.6 K/uL (20.0-40.0); LYMPHOCYTES % (AUTO) 19.3 % (20.5-51.5); MEAN CORPUSCULAR HEMOGLOBIN 28.1 uug (24.7-32.8); MEAN CORPUSCULAR HGB CONC 32 g/dL (32.3-35.6); MEAN CORPUSCULAR VOLUME 86.8 fL (75.5-95.3); MONOCYTES # (AUTO) 0.3 K/uL (2.0-10.0); MONOCYTES % (AUTO) 3.8 % (0.0-11.0); NEUTROPHILS # (AUTO) 6.3 K/uL (1.8-8.9); NEUTROPHILS % (AUTO) 75.4 % (38.5-71.5); PLATELET COUNT (AUTO) 298 K/uL (179-408); WHITE BLOOD COUNT (AUTO) 8.3 K/uL (3.8-11.8)
[2018-02-09 07:41] LABS: HEMOGLOBIN 9.5 g/dL (10.9-14.3)
[2018-02-09 07:42] LABS: HEMATOCRIT 29.5 % (31.2-41.9)
--- NOTE | 2018-02-09 07:49 | NUR ---
PATIENT RESTING COMFORTABLY IN BED. NO S/S OF DISTRESS AT THIS TIME. STABLE CONDITION. BLOOD PRESSURE WNL PER SPECIAL NEEDS CHILD CAREGIVER NURSE. WILL MONITOR BP THROUGHOUT SHIFT. BED IN LOCKED/LOW POSITION, SIDE RAILS UP X2, BED ALARM ON, CALL LIGHT WITHIN REACH. BEDSIDE COMMODE AT BEDSIDE.
[2018-02-09] MEDS: SERTRALINE HCL 50 MG TABLET PO SCH (08:19)
[2018-02-09] MEDS: FAMOTIDINE 20 MG TABLET PO SCH (08:19)
[2018-02-09] MEDS: ASPIRIN 81 MG TAB.CHEW PO SCH (08:19)
[2018-02-09] MEDS: AMLODIPINE 5 MG TABLET PO SCH (08:29)
[2018-02-09] MEDS: LIPASE/PROTEASE/AMYLASE 4200 UNITS CAPSULE.DR PO SCH (08:30)
[2018-02-09] MEDS: METOPROLOL TARTRATE 25 MG TABLET PO SCH (08:30)
[2018-02-09 08:45] VITALS: BP_SYST 152; BP_SYST 154; BP_DIAS 57; BP_DIAS 58
[2018-02-09] MEDS ORDERED: POTASSIUM CHLORIDE 20 MEQ TAB.PRT.SR PO ONE (10:15)
[2018-02-09 11:17] VITALS: BP 112/67
[2018-02-09] MEDS ORDERED: MULT1TAB73 PO (13:33)
[2018-02-09] MEDS ORDERED: HYDR50TA68 PO (13:33)
[2018-02-09] MEDS ORDERED: AMLO5TAB2 PO (13:33)
--- NOTE | 2018-02-09 13:37 | NUR ---
WOUND CARE CONSULT: PT PRESENTS WITH BILATERAL STAGE 3 BUTTOCK ULCERS, PRESENT ON ADMISSION. RECOMMENDATIONS MADE FOR SKIN PROTECTION AND WOUND CARE. DISCUSSED WITH NURSING STAFF. PT ON FIRST STEP MATTRESS. ALL SKIN PROTECTION MEASURES IN PLACE. WILL SEE PRN. GAMBLE IN AGREEMENT WITH PLAN OF CARE. Addendum: 02/09/18 at 1342 by SUDHA BROWN RN Amended: Links added.
[2018-02-09] MEDS ORDERED: Z GUARD REMEDY PASTE 57 GM TUBE TOP PRN (13:45)
[2018-02-09 15:17] VITALS: BP 120/60
--- NOTE | 2018-02-09 15:41 | NUR ---
DISCHARGE ORDERS PLACED BY MD. PATIENT BEING DISCHARGED TO [facility]. REPORT GIVEN TO RN MERCHANDISE WORKER AT [facility]. PICTURES RETAKEN AND PLACED IN HARD. PICC-LINE LEFT UPPER ARM DISCONNECTED. NO SIGNS OF BLEEDING. ID BAND TAKEN OFF. BELONGINGS CHECKLIST CHECKED, SIGNED. PATIENT UNABLE TO SIGN DISCHARGE DOCUMENTS, RN SIGNED WITH WITNESS RN SIGNATURE. DISCHARGE DOCUMENTATION COMPLETED, DISCHARGE PACKET PRINTED AND PROVIDED TO PATIENT/[facility]. FORM OF TRANSPORTATION WILL BE AMBULANCE AND ASSISTANT EDUCATION DIRECTOR TIME IS 4:00 PM. VITAL SIGNS STABLE FOR PATIENT. STABLE CONDITION, NO S/S OF DISTRESS.
--- NOTE | 2018-02-09 16:45 | NUR ---
PATIENT DISCHARGE AT THIS TIME IN STABLE CONDITION, NO S/S OF DISTRESS. AMBULANCE PICKED UP PATIENT AND SAFELY DEPARTED HOSPITAL PREMISES IN SAFE CONDITION. PATIENT'S BELONGINGS WITH PATIENT/AMBULANCE.
[2018-02-09] MEDS ORDERED: Z GUARD REMEDY PASTE 57 GM TUBE TOP SCH (21:00)
== END 2018-02-09 16:45 | DRG 291 ==
LOC: ER 12:29 → TELE 15:13 → MED 02-09 10:30
PROVIDERS: ADMIT Internal Medicine; ATTEND Internal Medicine
DX: I13.0 Hypertensive heart and chronic kidney disease with heart failure and stage 1 through stage 4 chronic kidney disease, or unspecified chronic kidney disease (principal); I50.33 Acute on chronic diastolic (congestive) heart failure; N17.0 Acute kidney failure with tubular necrosis; E43 Unspecified severe protein-calorie malnutrition; E87.0 Hyperosmolality and hypernatremia; E11.22 Type 2 diabetes mellitus with diabetic chronic kidney disease; D68.59 Other primary thrombophilia; E83.9 Disorder of mineral metabolism, unspecified; K86.89 Other specified diseases of pancreas; D64.9 Anemia, unspecified; J98.11 Atelectasis; E87.6 Hypokalemia; G30.9 Alzheimer's disease, unspecified; I07.1 Rheumatic tricuspid insufficiency; F02.80 Dementia in other diseases classified elsewhere, unspecified severity, without behavioral disturbance, psychotic disturbance, mood disturbance, and anxiety; N18.9 Chronic kidney disease, unspecified; Z87.440 Personal history of urinary (tract) infections; E55.9 Vitamin D deficiency, unspecified; Z68.22 Body mass index [BMI] 22.0-22.9, adult; K80.20 Calculus of gallbladder without cholecystitis without obstruction; F41.9 Anxiety disorder, unspecified; M19.90 Unspecified osteoarthritis, unspecified site; F32.9 Major depressive disorder, single episode, unspecified; F06.8 Other specified mental disorders due to known physiological condition; E78.5 Hyperlipidemia, unspecified; Z79.899 Other long term (current) drug therapy; M51.37 Other intervertebral disc degeneration, lumbosacral region; M77.9 Enthesopathy, unspecified; M85.80 Other specified disorders of bone density and structure, unspecified site; Z79.82 Long term (current) use of aspirin; K76.0 Fatty (change of) liver, not elsewhere classified; K21.9 Gastro-esophageal reflux disease without esophagitis; R11.2 Nausea with vomiting, unspecified
CPT/HCPCS: 36415; 70030-TC; 71045; 83605; 83690; 83735; 84100; 85025; 85730; 87040; 87086; 87400; 93005; A4663; C1758; J2405